=== PATIENT | female | born 1950 | race African-American/Black ===

== ENCOUNTER 2016-05-18 16:12 | Emergency (ER) | payer OTHER ==
[~2016-05-18] VITALS: Ht 165.1 cm; Wt 114.5 kg
[~2016-05-18 16:12] MED LIST: ALUM5LIQ PO; AMOX500T PO; ASPI-119 PO; METO25 PO; NYST100010 SS; PROZ20CA11 PO; VIST50CA PO; XANA0.5T PO; ZANTTAB PO
[2016-05-18 16:14] VITALS: BP 185/79; PULSE 98; RESP 16; TEMP 98.6; O2SAT 100
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
[2016-05-18] MEDS ORDERED: ACETAMINOPHEN 325 MG TAB PO ONE (17:00)
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
--- NOTE | 2016-05-18 18:17 | RADRPT ---
EXAM DATE/TIME: 05/18/2016 17:25 [facility] COMPARISON: No previous studies available for comparison. INDICATIONS : Small laceration to the medial anterior aspect of the left knee. MEDICAL HISTORY : None. SURGICAL HISTORY : None. ENCOUNTER: Initial ACUITY: 1 day PAIN SCORE: 3/10 LOCATION: Left knee FINDINGS: Four view examination of the left knee demonstrates no evidence of fracture or dislocation. There is severe osteoarthritis at the medial joint. CONCLUSION: 1. Severe osteoarthritis of the medial joint space. No acute bony abnormalities. Jaxson Zarate MD on May 18, 2016 at 18:14 Board Certified Radiologist. This report was verified electronically.
[2016-05-18] MEDS ORDERED: ACET500T3 PO (18:26)
== END 2016-05-18 18:47 | disposition home or self-care (01) ==
LOC: NEPK 16:12
DX: S46.819A Strain of other muscles, fascia and tendons at shoulder and upper arm level, unspecified arm, initial encounter (principal); S69.92XA Unspecified injury of left wrist, hand and finger(s), initial encounter; S80.02XA Contusion of left knee, initial encounter; S80.212A Abrasion, left knee, initial encounter; M06.9 Rheumatoid arthritis, unspecified; F41.9 Anxiety disorder, unspecified; E11.9 Type 2 diabetes mellitus without complications; I10 Essential (primary) hypertension; V43.52XA Car driver injured in collision with other type car in traffic accident, initial encounter
CPT/HCPCS: 71010; 73130; 73564; 99283

== ENCOUNTER 2016-08-05 09:27 | Emergency (ER) | payer OTHER ==
[~2016-08-05] VITALS: Ht 165.1 cm; Wt 120.0 kg
[~2016-08-05 09:27] MED LIST changes: +ACET500T3 PO
[2016-08-05 09:29] VITALS: BP 173/94; PULSE 108; RESP 18; TEMP 97.8; O2SAT 98
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
[2016-08-05] MEDS ORDERED: KETOROLAC TROMETHAMINE 60 MG/2 ML (IM) VIAL IM ONE (10:45)
[2016-08-05] MEDS ORDERED: PROT40TA PO (11:00)
== END 2016-08-05 11:59 | disposition home or self-care (01) ==
LOC: NEPD 09:27
DX: K29.00 Acute gastritis without bleeding (principal); G89.29 Other chronic pain; M06.9 Rheumatoid arthritis, unspecified; E78.00 Pure hypercholesterolemia, unspecified; I10 Essential (primary) hypertension
CPT/HCPCS: 96372; 99284; J1885

== ENCOUNTER 2016-08-05 14:46 | Emergency (ER) | payer OTHER ==
[~2016-08-05] VITALS: Ht 165.1 cm; Wt 120.0 kg
[~2016-08-05 14:46] MED LIST changes: +PROT40TA PO
[2016-08-05 14:48] VITALS: BP 195/93; PULSE 112; RESP 20; TEMP 97.7; O2SAT 97
--- NOTE | 2016-08-05 14:55 | PD ---
Physical Exam Date Seen by Provider: Aug 05, 2016 Time Seen by Provider: 14:53 Data Data Last Documented VS Vital Signs Date Time Temp Pulse Resp B/P Pulse Ox O2 Delivery O2 Flow Rate FiO2 08/05/16 14:48 97.7 112 20 195/93 97 MDM Supervised Visit with ASYA: No Narrative Course 66 YO F with complaint of tremors and "feeling jittery" since receiving a Toradol shot in the ED a few hours ago. --pruritis, SOB, closed throat feeling Vitals reviewed. Patient seen in triage, awaiting bed placement. Debora Pyle Aug 05, 2016 14:55
[2016-08-05 15:20] VITALS: BP 150/79; PULSE 90; RESP 26
--- NOTE | 2016-08-05 16:23 | PD ---
HPI Chief Complaint: Anxiety Time Seen by Provider: 16:22 Travel History International Travel<30 days: No Contact w/Intl Traveler<30days: No Traveled to known affect area: No History of Present Illness HPI 66-year-old female came to the emergency room for palpitation. Patient was in the emergency department earlier incidentally and I had seen her. She was here for multiple pain complaints. She was given a dose of Toradol and then discharged home. Patient says after she went home her heart rate started to beat very fast and she got jittery and hence came here. She does not appear to be in any significant distress just anxious. Denies any chest pain. PFSH Past Medical History Narrative Medical List of her past medical, surgical, social and family history was reviewed from the nursing note. Hx Anticoagulant Therapy: Yes (asa) Arthritis: Yes (RHEUMATOID) Anxiety: Yes Cardiovascular Problems: Yes (htn) High Cholesterol: Yes Diabetes: Yes (HYPOGLYEMIC EPISODES) Diminished Hearing: No GERD: Yes Hypertension: Yes ?: Not : 4 Para: 4 Tubal Ligation: Yes Past Surgical History Gynecologic Surgery: Yes (HYSTERECTOMY) Hysterectomy: Yes Social History Alcohol Use: No Tobacco Use: No Substance Use: No Allergies-Medications (Allergen,Severity, Reaction): Coded Allergies: Phenobarbital (Verified Allergy, Severe, ANAPHYLAXIS, 08/05/16) Sulfa (Verified Allergy, Severe, Anaphylaxis, 08/05/16) Codeine (Verified Allergy, Intermediate, Nausea/Vomiting, 08/05/16) Albuterol (Verified Allergy, Mild, 08/05/16) Clindamycin (Verified Allergy, Mild, 08/05/16) Erythromycin (Verified Allergy, Mild, 08/05/16) Zithromax (Verified Allergy, Mild, 08/05/16) Comments List of her allergies reviewed from the nursing note. Reported Meds & Prescriptions Reported Meds & Active Scripts Active Protonix (Pantoprazole Sodium) 40 Mg Tab 40 Mg PO DAILY Acetaminophen 500 Mg Tab 500 Mg PO Q6H PRN Vistaril 50 MG CAP (Hydroxyzine Pamoate) 50 Mg Cap 50 Mg PO Q6 PRN Reported Mycostatin Susp (Nystatin) 500,000 U/5 Ml Susp 5 Ml SS QID Rai Low Dose (Aspirin) 81 Mg Tab 81 Mg PO Metoprolol Tartrate 25 mg (Metoprolol Tartrate) 25 Mg Tab 25 Mg PO DAILY Amoxil (Amoxicillin) 500 Mg Tab 500 Mg PO Q8H Prozac (Fluoxetine HCl) 20 Mg Cap 20 Mg PO DAILY Xanax 0.5 mg (Alprazolam) Alprazolam 0.5 mg Tab 1 Tab PO TID Mylanta (Al Hydrox/Mg Hydrox/Simethicone) 30 Ml Susp 30 Ml PO Q6H PRN Zantac 150 Maximum Streng (Ranitidine HCl) 150 Mg Tab 150 Mg PO HS Narrative Medication List of her home medications reviewed from the nursing note. Review of Systems Except as stated in HPI: all other systems reviewed are Neg Physical Exam Narrative GENERAL: Awake, alert, anxious, no obvious distress SKIN: Focused skin assessment warm/dry. HEAD: Atraumatic. Normocephalic. EYES: Pupils equal and round. No scleral icterus. No injection or drainage. ENT: No nasal bleeding or discharge. Mucous membranes pink and moist. NECK: Trachea midline. No JVD. CARDIOVASCULAR: Regular rate and rhythm. No murmur appreciated. RESPIRATORY: No accessory muscle use. Clear to auscultation. Breath sounds equal bilaterally. GASTROINTESTINAL: Abdomen soft, non-tender, nondistended. Hepatic and splenic margins not palpable. MUSCULOSKELETAL: No obvious deformities. No clubbing. No cyanosis. No edema. NEUROLOGICAL: Awake and alert. No obvious cranial nerve deficits. Motor grossly within normal limits. Normal speech. PSYCHIATRIC: Appropriate mood and affect; insight and judgment normal. Data Data Last Documented VS Vital Signs Date Time Temp Pulse Resp B/P Pulse Ox O2 Delivery O2 Flow Rate FiO2 08/05/16 15:20 90 26 150/79 08/05/16 14:48 97.7 97 Orders Electrocardiogram (08/05/16 ) Building Construction Foreman / Telemetry CHELI.[id number] (08/05/16 16:36) [facility] Medical Decision Making Medical Screen Exam Complete: Yes Emergency Medical Condition: Yes Medical Record Reviewed: Yes Interpretation(s) Twelve-lead EKG was reviewed by me. Normal sinus rhythm, normal axis, nonspecific ST-T wave changes. Heart rate of 85 bpm. Differential Diagnosis Anxiety, palpitations Narrative Course 4:50 PM current resting heart rate is in the 80s. I've asked the nurse to ambulate her and get a repeat heart rate. I intend to discharge this patient home. 5:11 PM after ambulation her heart rate went up to 97. I'll discharge her home. Procedures EKG Prior to Arrival: No Diagnosis Primary Impression: Palpitations Referrals: Primary Care Physician Additional Instructions: Return to the ER for any new concerns. Otherwise follow-up with the primary care. Med/Other Pt SpecificInfo: No Change to Meds Disposition: 01 DISCHARGE HOME Condition: Stable Uzma Constantino MD Aug 05, 2016 16:23
--- NOTE | 2016-08-06 23:34 | EKG ---
Date Performed: 08/05/2016 Time Performed: 16:37:08 PTAGE: 66 years EKG: Sinus rhythm POSSIBLE RIGHT ATRIAL ENLARGEMENT BORDERLINE ECG PREVIOUS TRACING : 05/13/2015 15.17 Compared to prior tracing no significant change DOCTOR: Cici Hayes Interpretating Date/Time 08/06/2016 23:32:18
== END 2016-08-05 18:14 | disposition home or self-care (01) ==
LOC: NEPD 14:46
DX: R00.2 Palpitations (principal); R94.31 Abnormal electrocardiogram [ECG] [EKG]; M06.9 Rheumatoid arthritis, unspecified; E78.00 Pure hypercholesterolemia, unspecified; I10 Essential (primary) hypertension
CPT/HCPCS: 93005